=== PATIENT | female | born 1975 | race Caucasian/White ===

== ENCOUNTER 2022-10-28 11:09 | Emergency (ER) | payer MEDICAID ==
[~2022-10-28] VITALS: Ht 121.9 cm; Wt 50.0 kg
[~2022-10-28 11:09] MED LIST: ACET160L44 GT; ALB0.5UD IH; BENZ1KIT27 TOP; CALC-1151 GT; DULR RC; FAMO-128 GT; KETO15CR2 TOP; LACT10SO3 GT; LEVO75TA GT; METO5TAB98 GT; NORE-101 GT; ONDA4TAB9 SL; PHEN64.8 GT; VITC500T GT; [UNRECOGNIZED DRUG - CODE] GT; [UNRECOGNIZED DRUG - OTHER] BC; [UNRECOGNIZED DRUG - OTHER] GT; [UNRECOGNIZED DRUG - OTHER] GT
[2022-10-28 11:29] VITALS: BP 134/88
== END 2022-10-28 16:05 | disposition home or self-care (01) ==
LOC: ER 11:09
DX: S60.031A Contusion of right middle finger without damage to nail, initial encounter (principal); Z79.899 Other long term (current) drug therapy; Z79.1 Long term (current) use of non-steroidal anti-inflammatories (NSAID); Z79.2 Long term (current) use of antibiotics; X58.XXXA Exposure to other specified factors, initial encounter; Y93.89 Activity, other specified; Y92.89 Other specified places as the place of occurrence of the external cause; Y99.8 Other external cause status
CPT/HCPCS: 73140; 99283